=== PATIENT | male | born 1975 | race African-American/Black ===

== ENCOUNTER 2017-07-18 16:15 | Emergency (ER) | payer OTHER, SELFPAY ==
[2017-07-18 16:16] VITALS: BP 153/93; PULSE 79; RESP 16; TEMP 36.8; O2SAT 99; BMI 25.7
--- NOTE | 2017-07-18 16:31 | ED.RN ---
NOAH FRAGA CONTACTED FOR DRUG SCREEN PROCEDURE REQUESTED BY ROSEMARY PIN STICKER.
--- NOTE | 2017-07-18 16:34 | RAD_ITS ---
STUDY: X-RAY - LEFT FOOT CLINICAL: Male, 42 years old. Injury left foot with pain. TECHNIQUE: 3 view(s) of the foot. COMPARISON: None. FINDINGS: Normal talus, calcaneus, and tarsal bones. Normal visualized subtalar, talonavicular, calcaneocuboid, tarsal and tarsometatarsal articulations. There is a small minimally displaced avulsion fracture of the base of the fifth metatarsal. There is mild arthrosis of the first metatarsophalangeal joint. Normal tibial and fibular sesamoid bones. Normal interphalangeal joint of the great toe. Normal phalanges of the great toe. Normal second through fifth metatarsophalangeal joints. Normal interphalangeal joints and phalanges of the lesser toes. The soft tissue structures are unremarkable. RAD/Foot min 3 Views IMPRESSION: Base of fifth metatarsal fracture. Osteoarthrosis of the first metatarsophalangeal joint. Electronically Signed: Casey Oquendo MD at 17:16 EDT , Service support ,
--- NOTE | 2017-07-18 17:35 | ED.VISSUMM ---
- ER Visit Summary Date of Service: 07/18/17 Chief Complaint: [Injury left foot] History of Present Illness: The patient is a 42 M [presents to the emergency department with injury to the left foot that occurred while at work today. 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 Patient had a hard time bearing weight afterwards. Presents via EMS for evaluation.] Physical Examination: [Left leg-patient has no significant tenderness over the left ankle. Patient has diffuse tenderness over the left foot to the midfoot, heel, and fifth metatarsal. Minimal soft tissue swelling. No ecchymosis. No obvious deformity. Neurovascular intact.] Test Results: [X-rays of the left foot obtained showed an avulsion fracture at the base of the fifth metatarsal] Emergency Department Course and Treatment: [Patient will be given crutches as well as a postop shoe] Treatment Plan: [Patient will follow up with orthopedics] Disposition: [Discharged to home in stable condition] Impression: [Left foot crush injury Fifth metatarsal avulsion fracture left foot] This note was generated with [employer] dictation software. It may contain incorrect words, spelling, and punctuation that were not noted in review of the chart prior to signing ED Disposition - Plan for ED Patient: Chief Complaint: Lower Extremity Injury Referrals: NOT,DEFINED [Primary Care Provider] -
--- NOTE | 2017-07-18 17:39 | DCINST.ED_ITS ---
ED Disposition - Plan for ED Patient: Chief Complaint: Lower Extremity Injury Instructions: ED Fx Foot Prescriptions: Hydrocodone/Acetaminophen [[place] 5-325 Tablet] 1 - 2 ea PO 4X/DAY PRN PRN 5 Days #20 tab PRN Reason: Pain Referrals: NOT,DEFINED [NON-STAFF] -
--- NOTE | 2017-07-18 17:41 | ED.DEP ---
ED Disposition - Plan for ED Patient: Chief Complaint: Lower Extremity Injury Instructions: ED Fx Foot Prescriptions: Hydrocodone/Acetaminophen [[place] 5-325 Tablet] 1 - 2 ea PO 4X/DAY PRN PRN 5 Days #20 tab PRN Reason: Pain Referrals: NOT,DEFINED [NON-STAFF] - Deep Estes DO [STAFF PHYSICIAN] -
[2017-07-18 18:00] VITALS: RESP 18
== END 2017-07-18 18:28 | disposition home or self-care (01) ==
PROVIDERS: Emergency Provider Emergency Medicine
DX: S92.312A Displaced fracture of first metatarsal bone, left foot, initial encounter for closed fracture (principal); W23.1XXA Caught, crushed, jammed, or pinched between stationary objects, initial encounter; Y93.89 Activity, other specified; Y92.812 Truck as the place of occurrence of the external cause; Y99.0 Civilian activity done for income or pay
CPT/HCPCS: 73630; 99285